=== PATIENT | female | born 1990 | race Caucasian/White ===

== ENCOUNTER 2017-04-18 10:45 | Emergency (ER) | payer MEDICAID, OTHER ==
[~2017-04-18] VITALS: Ht 154.9 cm; Wt 54.2 kg
[2017-04-18 10:49] VITALS: Ht 154.9 cm; Wt 54.2 kg
--- NOTE | 2017-04-18 13:42 | RADRPT ---
PROCEDURE: XR Chest. CLINICAL INDICATION: Chest pain. TECHNIQUE: Single frontal view. COMPARISON: None. FINDINGS: The lungs are clear. The heart size is normal. There is no pleural effusion. There is no pneumothorax. IMPRESSION: 1. Normal chest radiograph. RPTAT: QQ .Keith Kebede MD, Date Time Electronically viewed and signed by .Keith Kebede MD, on 04/18/2017 13:41 .R/
[2017-04-18] MEDS ORDERED: CETI10CA PO (14:12)
[2017-04-18] MEDS ORDERED: ACET500C5 PO (14:12)
--- NOTE | 2017-04-18 14:27 | ERD ---
ER Documentation Chief Complaint Chief Complaint RT EAR PAIN , CHEST CONGESTION , 17 WEEKS PREG HPI 27-year-old female who is 17 weeks A0 presents with right-sided ear fullness, vertiginous dizziness and feeling like she is having chest pain or shortness of breath when she lays down. Patient states this started about 3 or 4 days ago, and she describes sharp right-sided ear pain and fullness. She has not had any fevers, chills, cough, rhinorrhea. She denies leg pain leg swelling. She denies pelvic pain or vaginal bleeding. She reports normal movement. ROS All systems reviewed and are negative except as per history of present illness. Medications Home Meds Active Scripts Acetaminophen* (Tylophen*) 500 Mg Capsule, 1 CAP PO Q6H Y for PAIN AND OR ELEVATED TEMP, #20 CAP Prov:TWILA AZEVEDO PA-C 04/18/17 Cetirizine Hcl* (Zyrtec*) 10 Mg Capsule, 10 MG PO DAILY, #10 TAB.CHEW Prov:TWILA AZEVEDO PA-C 04/18/17 PMhx/Soc Medical and Surgical Hx: pt denies Medical Hx, pt denies Surgical Hx Hx Alcohol Use: No Hx Substance Use: No Hx Tobacco Use: No Smoking Status: Never smoker Physical Exam Vitals Vital Signs Date Time Temp Pulse Resp B/P Pulse Ox O2 Delivery O2 Flow Rate FiO2 04/18/17 10:49 98.2 70 18 108/67 100 Physical Exam General: Well-developed, well-nourished. The patient appears in no acute distress. HEENT: Head is normocephalic, atraumatic. No scleral icterus. Pupils are equal , round, and reactive. Oral mucous membranes are moist. No pharyngeal erythema. TM on the right side is full, without erythema, no perforation, no otorrhea, left ear is normal Neck: Supple. Nontender. Lungs: Clear to auscultation. Normal air movement. Heart: Regular rate and rhythm. S1 and S2 are normal. No murmurs, gallops, or rubs. Abdomen: Soft, nontender nondistended. Bowel sounds are normoactive. Extremities: No clubbing or cyanosis. Normal pulses. Moving extremities x 4. No weakness. Neurologic: Alert and oriented 3. No focal deficits. Skin: Normal turgor. No rash or lesions. Results 24 hrs EKG: Read by Dr. Vyas Rate/Rhythm: Normal Sinus Rhythm ventricular rate at 70 QRS, ST, T-waves: No changes consistent w/ acute ischemia Impression: No evidence of ischemia or arrhythmia Chest X-ray 1V Interpreted by me as well as the radiologist: She was informed of minimal radiation risks, she was shielded and consented. Soft Tissue: No acute abnormalities Bones: No acute abnormalities Mediastinum/Cardiac Silhouette/Lungs: No acute abnormalities Procedures/MDM 27-year-old female who is currently presents with vertiginous dizziness , with right ear pain and feeling like she is short of breath when she lays down. Patient's differential diagnosis is broad, including luminary embolus, acute coronary syndrome, pneumonia, bronchitis, asthma, dissection, pneumothorax , URI, rhinitis. Patient describes fullness of the right ear, which is visible on examination without evidence of otitis media. She does not have tachycardia , hypoxia, respiratory distress, I doubt PE. Patient was given Zyrtec for Tylenol for symptomatic treatment. She had an EKG as well as a chest x-ray without any concerning findings. This was discussed with my attending physician who agreed that this patient is stable to be discharged home. Departure Diagnosis: Primary Impression: Right ear pain Additional Impression: Chest pain Condition: Good Patient Instructions: Chest Pain, Uncertain Cause, Earache W/O Infection (Adult ) TWILA AZEVEDO PA-C Apr 18, 2017 14:27
[2017-04-18 14:29] VITALS: BP 110/67; PULSE 66; RESP 18
== END 2017-04-18 14:30 | disposition home or self-care (01) ==
LOC: FTE 10:45
DX: O99.89 Other specified diseases and conditions complicating pregnancy, childbirth and the puerperium (principal); H92.01 Otalgia, right ear; R07.9 Chest pain, unspecified; Z3A.17 17 weeks gestation of pregnancy
CPT/HCPCS: 71010; 93005; Z7502

== ENCOUNTER 2017-08-31 19:41 | Outpatient (CLI) | END 2017-08-31 21:45 | disposition home or self-care (01) ==

== ENCOUNTER 2017-09-13 18:05 | Inpatient (IN) | END 2017-09-17 16:04 | disposition home or self-care (01) | DRG 775 ==